=== PATIENT | male | born 1945 | race Caucasian/White ===

== ENCOUNTER 2019-05-08 08:57 | Outpatient (CLI) | payer MEDICARE, SELFPAY ==
[2019-05-08 09:11] LABS: Basophils Absolute Auto 0.09 K/mm3 (0.00-0.10); Eosinophils Absolute Auto 0.71 K/mm3 (0.02-0.50); Eosinophils Percent Auto 7.8 % (1.0-6.0); Hematocrit 39.7 % (37.0-46.0); Hemoglobin 13.3 g/dL (12.4-15.3); Immature Granulocyte Absolute 0.03 K/mm3 (0.00-0.00); Immature Granulocyte Percent A 0.3 % (0.0-0.0); Lymphocytes Absolute Auto 2.39 K/mm3 (1.10-4.50); Lymphocytes Percent Auto 26.1 % (18.0-42.0); Mean Corpuscular HGB Conc 33.5 g/dL (32.0-36.0); Mean Corpuscular Hemoglobin 30.9 pg (27.0-31.0); Mean Corpuscular Volume 92.1 fL (78.0-102.0); Monocytes Absolute Auto 0.82 K/mm3 (0.10-0.90); Neutrophils Absolute Auto 5.1 K/mm3 (1.7-7.2); Neutrophils Percent Auto 55.8 % (50.0-70.0); Platelet Count Result 180 K/mm3 (150-420); Red Blood Count 4.31 M/mm3 (4.70-6.10); Red Cell Distribution Width 12.8 % (11.6-14.4); White Blood Count 9.2 K/mm3 (4.8-10.8)
[2019-05-08 10:21] LABS: Alanine Aminotransferase 13 U/L (16-63); Albumin Level 3.3 g/dL (3.4-5.0); Alkaline Phosphatase 68 U/L (46-116); Anion Gap 13.2 mmol/L (7-16); Aspartate Amino Transferase 15 U/L (15-37); Bilirubin,Total 0.5 mg/dL (0.00-1.00); Blood Urea Nitrogen 18 mg/dL (7-18); Calcium 8.5 mg/dL (8.5-10.1); Carbon Dioxide 29 mmol/L (21-32); Chloride 104 mmol/L (98-108); Cholesterol 163 mg/dL (0-200); Estimated Glomerular Filt Rate > 60; Glucose 243 mg/dL (70-99); HDL Direct 44 mg/dL (40-60); LDL Cholesterol Calculated 96 mg/dL (<130); Osmolality Calculated 303 mOsm/kg (285-295); Potassium 4.2 mmol/L (3.5-5.1); Sodium 142 mmol/L (136-145); Triglycerides 117 mg/dL (0-150)
== END 2019-05-08 08:58 | disposition home or self-care (01) ==
PROVIDERS: PCP Nurse Practitioner Family; Visit Provider Nurse Practitioner Family
DX: E11.9 Type 2 diabetes mellitus without complications (principal)
CPT/HCPCS: 36415; 80053; 80061; 83036; 85025

== ENCOUNTER 2019-09-10 08:24 | Outpatient (CLI) | payer MEDICARE, SELFPAY ==
[2019-09-10 09:00] LABS: Creatinine Urine 83.01 mg/dL (40-278); MALB Creatinine Ratio 1.8 mg/g (0-30); Microalbumin Urine Random 1.5 mg/L
[2019-09-10 09:03] LABS: Hemoglobin A1C 8.5 % (<5.7)
== END 2019-09-10 08:25 | disposition home or self-care (01) ==
LOC: CHSLAB 08:28
PROVIDERS: PCP Nurse Practitioner Family; Visit Provider Nurse Practitioner Family
DX: E11.9 Type 2 diabetes mellitus without complications (principal)
CPT/HCPCS: 36415; 82043; 83036

== ENCOUNTER 2019-09-25 14:06 | Outpatient (CLI) | payer MEDICARE, MEDICAID, SELFPAY ==
--- NOTE | 2019-09-25 14:09 | ECG_ITS ---
Measurements Intervals [place] Rate: 73 P: 41 [place]: 257 QRS: -62 QRSD: 109 T: 31 QT: 394 QTc: 437 Interpretive Statements SINUS RHYTHM WITH SINUS ARRHYTHMIA WITH FIRST DEGREE AV BLOCK LEFT ANTERIOR FASCICULAR BLOCK ABNORMAL ECG Electronically Signed On 09-25-2019 14:27:48 CDT by Julian Sheldon D.O.
--- NOTE | 2019-09-25 14:23 | ECHO_ITS ---
Patient Info Name: Frederick Palmer Age: 73 years : 1945 Gender: Male Ht: 68 in Wt: 212 lbs BSA: 2.18 m2 HR: 75 bpm BP: 124 / 73 mmHg Technical Quality: Good Exam Date: 09/25/2019 2:40 PM Exam Location: [facility] Patient Status: Outpatient Admit Date: 09/25/2019 Staff Ordering Physician: Priscilla Fish NP Dam Tender Assistant: Delmar Olivas RDCS, RT Attending Provider: Priscilla Fish NP Referring Physician: Polina LO; Exam Type: CA echo doppler color flow Study Info Indications R60.9 - Edema, unspecified Complete two-dimensional, color flow and Doppler transthoracic echocardiogram is performed. Summary 1. Left ventricular chamber dimension is normal. 2. Left ventricular systolic function is normal, estimated at 55-60%. 3. There is mildly increased left ventricular wall thickness. 4. Left ventricular septal wall motion is abnormal with septal motion related to bundle branch block. 5. Ventricular septum is sigmoid shaped. 6. The left ventricular diastolic function is normal. 7. E/e' 8 is minimally elevated. 8. Right ventricular systolic function is reduced based on TAPSE 1.2 cm.. 9. There is moderate aortic valve sclerosis. 10. There is trace tricuspid valve regurgitation. 11. There is trace pulmonic regurgitation. Left Ventricle Ventricular septum is sigmoid shaped. E/e' 8 is minimally elevated. Left ventricular chamber dimension is normal. Left ventricular systolic function is normal, estimated at 55-60%. There is mildly increased left ventricular wall thickness. Left ventricular septal wall motion is abnormal with septal motion related to bundle branch block. The left ventricular diastolic function is normal. Right Ventricle Right ventricular systolic function is reduced based on TAPSE 1.2 cm.. Right ventricular chamber dimension is normal. Left Atria Left atrial chamber dimension is normal. Right Atria Right atrial chamber dimension is normal. Aortic Valve The aortic valve is trileaflet. There is moderate aortic valve sclerosis. There is no aortic valve stenosis. There is no aortic valve regurgitation. Pulmonic Valve There is trace pulmonic regurgitation. Mitral Valve There is no mitral valve stenosis. There is no mitral valve regurgitation. Tricuspid Valve RVSP is not calculated due to an inadequate TR jet. There is trace tricuspid valve regurgitation. Pericardium/Pleural There is no pericardial effusion. Inferior Vena Cava Normal inferior vena cava with >50% collapse upon inspiration consistent with normal right atrial pressure, 5 mmHg. Aorta The aortic root size at the sinus of Valsalva is normal. Left Ventricular Outflow Tract Name Value Normal LVOT 2D LVOT Diameter 2.4 cm LVOT Doppler LVOT Peak Velocity 61 cm/s LVOT Peak Gradient 1 mmHg LVOT Mean Gradient 1 mmHg LVOT VTI 13 cm LVOT VTI/AV VTI Ratio 0.8 LVOT Stroke Volume 57 ml Mitral Valve
== END 2019-09-25 14:07 | disposition home or self-care (01) ==
LOC: CHSIMG 14:09
PROVIDERS: PCP Nurse Practitioner Family; Visit Provider Nurse Practitioner Family
DX: R60.0 Localized edema (principal)
CPT/HCPCS: 93005; 93306

== ENCOUNTER 2019-12-15 13:41 | Emergency (ER) | payer MEDICARE, MEDICAID, SELFPAY ==
[2019-12-15 14:00] VITALS: BP 131/75; PULSE 68; RESP 20; TEMP 37.2; O2SAT 98
--- NOTE | 2019-12-15 14:00 | ED.GENADULT ---
HPI - General Adult General Chief complaint: Urogenital-Male Stated complaint: urinary problems and diarrhea Time Seen by Provider: 12/15/19 14:09 History of Present Illness HPI narrative: 74-year-old male patient is brought in by his caregivers who is also his knees with chief complaints of urinary incontinence. The patient apparently has had some diarrhea and since this morning has had some stool incontinence as well. The patient states that he has had low back pain for a long time but none recently. He has not had any MRIs in the past. The patient has urinary incontinence all the time and the last time he was checked approximately a week and a half to 2 weeks ago and was noted not to have any urinary tract infection. The patient denies any trouble walking or any weakness to his lower extremities. Patient is usually sedentary but has no trouble walking around the house and getting up from his bed to the bathroom and out to the kitchen. He has not noticed any numbness or tingling to his lower half of the body. Patient is a diabetic. The patient denies any chest pain, headache, abdominal pain or any nausea or vomiting. He does complain of dry skin and itching all the time. Related Data Home Medications Medication Instructions Recorded Confirmed carvedilol 12.5 mg PO BID 12/15/19 12/15/19 metformin 1,000 mg PO BID 12/15/19 12/15/19 Allergies Allergy/AdvReac Type Severity Reaction Status Date / Time No Known Allergies Allergy Unverified 12/15/19 14:04 Review of Systems Review of Systems: All systems reviewed & are unremarkable except as noted in HPI and below Constitutional: Constitutional: Reports as per HPI, Denies chills, Denies fatigue, Denies fever(s) and Denies weakness Eyes: Eyes: Reports no additional eye complaints Gastrointestinal: Gastrointestinal: Reports as per HPI Genitourinary: Genitourinary: Reports as per HPI, Denies hematuria, Denies oliguria and Denies dysuria Neurologic: Denies confusion, Denies vertigo, Denies dizziness, Denies syncope, Denies numbness and Denies weakness PMF Past Medical History Medical History Heart attack Nicotine dependence, cigarettes, in remission Obesity, Class I, BMI 30-34.9 Type 2 diabetes mellitus Surgical History Surgical History History of cholecystectomy History of heart surgery bypass surgery Family History Family History Mother Diabetes mellitus Social History Social History Years smoked: 10 Smoking status: Never smoker Smokeless tobacco user: chewing tobacco Alcohol intake: never Substance use: never Substance use type: does not use Additional living arrangements comments: niece Patient reports he was having trouble at home. Additional occupation/education comments: construction-prior Gender identity (if verbalized by the patient): Male Exam Const: General: no acute distress and alert Nutritional Appearance: well nourished and obese Orientation/consciousness: patient oriented x3 HENMT: Head: normal to inspection Mouth: Yes Normal oral and palatal mucosa present Eyes: Pupils: Equal, round and reactive pupils present EOM: EOMs intact bilaterally Neck: Neck: normal visual inspection Chest: Chest palpation & inspection: normal inspection of the chest Resp: Effort & Inspection: normal respiratory effort, no retractions and no use of accessory muscles Auscultation: clear to auscultation bilaterally, no crackles, no rales, no rhonchi, no wheezes and lung sounds not diminished Cardio: Rate: regular rate Rhythm: regular rhythm GI: GI Palp: Yes Soft to palpation, No Tenderness to palpation present (GI), No Guarding due to palpation present (GI), No Rigid due to palpation and No Rebound tenderness present Percussion
[2019-12-15 15:08] LABS: Add Urine Microscopic? YES; Appearance Urine Clear (Clear); Bilirubin Urine Negative (Negative); Blood Urine Negative (Negative); Color Urine Yellow (Yellow); Glucose Urine UA 3+ (Negative); Ketones Urine Negative (Negative); Leukocyte Esterase Ur Negative LEU/UL (Negative); Nitrate Urine Negative (Negative); Protein Urine Negative (Negative); Urobilinogen Urine 0.2 mg/dL (0.2-1.0); pH Urine 5.5 (5.0-8.0)
[2019-12-15 15:14] LABS: Bacteria Urine None seen /hpf
[2019-12-15 15:15] LABS: Squamous Epithelial Cell Urine Few /hpf (Few)
[2019-12-15 15:35] VITALS: BP 130/78; PULSE 75; RESP 20; O2SAT 97
== END 2019-12-15 15:38 | disposition home or self-care (01) ==
PROVIDERS: Emergency Provider Emergency Medicine; PCP Nurse Practitioner Family
DX: N39.498 Other specified urinary incontinence (principal)
CPT/HCPCS: 81001; 99282; 99283

== ENCOUNTER 2020-01-13 13:47 | Observation (INO) | payer MEDICARE, MEDICAID, SELFPAY ==
[2020-01-13] VITALS (8 sets, daily range): BP systolic 105–169; BP diastolic 59–78; PULSE 62–86; RESP 12–18; TEMP 36.3–37.3; O2SAT 94–100; BMI 34.5
--- NOTE | ~2020-01-13 | CT_ITS ---
EXAMINATION: CT brain wo con DATE: 01/13/2020 14:43 INDICATION: Altered mental status. Seizure. TECHNIQUE: Computed tomography (CT) of the head was performed without intravenous contrast. The mA wa s adjusted according to patient size. Iterative reconstruction technique was employed. The dose-lengt h product was 756.67 mGy-cm. COMPARISON: None FINDINGS: There is diffuse brain volume loss. There are scattered areas of low attenuation in the cer ebral white matter, which is within normal limits for the patient's age. There is no intracranial hem orrhage, acute infarction, or abnormal intracranial mass lesion. The ventricles are normal in size. T here are likely changes of ocular lens replacement surgeries. There is mild mucosal thickening in the paranasal sinuses. The mastoid air cells are normal. IMPRESSION: 1. Normal aging brain. Reviewed, dictated and finalized at location A. IMPRESSION: 1. Normal aging brain.
--- NOTE | ~2020-01-13 | XR_ITS ---
EXAMINATION: XR chest 2V DATE: 01/13/2020 16:36 INDICATION: Cough and altered mental status. TECHNIQUE: frontal and lateral views of the chest were obtained. COMPARISON: None FINDINGS: Calcified nodule at the left apex consistent with old granulomatous disease. No other airspace opacit ies, pulmonary edema, pleural effusion or pneumothorax. The cardiomediastinal silhouette is normal. M edian sternotomy wires, ostial markers and mediastinal surgical clips consistent with prior coronary artery bypass grafting. There are bridging osteophytes at multiple levels in the spine, consistent wi th diffuse idiopathic skeletal hyperostosis (DISH). IMPRESSION: 1. No acute cardiopulmonary disease. Reviewed, dictated and finalized at location B.
--- NOTE | 2020-01-13 13:50 | ED.AMS ---
HPI - Altered Mental Status General Chief Complaint: Altered Mental Status Stated Complaint: ambulance Time Seen by Provider: 01/13/20 13:50 Source: patient Mode of arrival: EMS Limitations: no limitations History of Present Illness HPI narrative: 74-year-old man with history of type 2 diabetes brought in today by EMS after his daughter found him having seizure-like activity in his recliner. He stated his recliner overnight because of back pain and did not eat his breakfast this morning. He had his usual insulin dose this morning. EMS found him obtunded and incontinent of urine. Glucose in the EMS unit was in the 40s. Here his glucose was 45. has no history of seizures. His daughter states that she has had several falls in the last week or so but none resulting in evident injury. He has had no chest pain, shortness breath, nausea, vomiting, diarrhea, cough or cold symptoms, or pain complaints other than his back. She states the red area over his right eye is a birthmark. complaint: altered mental status Onset (ago): minute(s) (20) Severity: severe Consistency of symptoms: constant Context: diabetes Associated symptoms: chest pain, nausea/vomiting and shortness of breath Related Data Home Medications Medication Instructions Recorded Confirmed carvedilol 12.5 mg PO BID 12/15/19 01/13/20 metformin 1,000 mg PO BID 12/15/19 01/13/20 Allergies Allergy/AdvReac Type Severity Reaction Status Date / Time No Known Allergies Allergy Unverified 12/15/19 14:04 Review of Systems Review of Systems: ROS unobtainable: Yes unobtainable due to mental status Constitutional: Constitutional: Reports frequent falls (per daughter) [facility] Past Medical History Medical History (Updated 01/13/20 @ 18:[address] MD) Heart attack Nicotine dependence, cigarettes, in remission Obesity, Class I, BMI 30-34.9 Type 2 diabetes mellitus Surgical History Surgical History History of cholecystectomy History of heart surgery bypass surgery Family History Family History Mother Diabetes mellitus Social History Social History Years smoked: 10 Smoking status: Former smoker Tobacco type: cigarettes Smokeless tobacco user: chewing tobacco Second hand tobacco smoke exposure: Yes Alcohol intake: former Drinks per week: 3 Substance use: former Substance use type: marijuana Additional living arrangements comments: niece Patient reports he was having trouble at home. Additional occupation/education comments: construction-prior Gender identity (if verbalized by the patient): Male Sexual Orientation (if Verbalized by the Patient): Straight or Heterosexual Spiritual care concerns: No Exam Const: General: patient obtunded ( Spontaneous breathing and spontaneous movement of his upper extremities) Nutritional Appearance: overweight Limitations: altered mental status HENMT: Head: normal to inspection, atraumatic and periorbital ecchymosis ( erythema above left eye) Ears: external ears normal and TM's normal bilaterally General nose exam: Normal external nose present Face and sinus: normal facial exam Mouth: Yes Normal oral and palatal mucosa present and Yes moist mucous membranes Throat: posterior oropharynx normal Eyes: Pupils: Equal, round and reactive pupils present EOM: EOMs intact bilaterally Neck: Neck: normal visual inspection, trachea midline and other ( no tenderness) Chest: Chest palpation & inspection: normal inspection of the chest Resp: Effort & Inspection: normal respiratory effort and symmetric chest movement Auscultation: clear to auscultation bilaterally, no rales, no rhonchi and no wheezes Cardio: Rate: regular rate Rhythm: regular rhythm Heart sounds: no murmurs Peripheral pulses: Peripheral pulse
--- NOTE | 2020-01-13 13:54 | ECG_ITS ---
Measurements Intervals [place] Rate: 63 P: 28 CT: 334 QRS: -49 QRSD: 109 T: 1 QT: 421 QTc: 431 Interpretive Statements SINUS RHYTHM WITH MARKED FIRST DEGREE AV BLOCK LEFT AXIS DEVIATION BORDERLINE R WAVE PROGRESSION, ANTERIOR LEADS BORDERLINE T WAVE ABNORMALITY- INFERIOR LEADS BASELINE ARTIFACT- II, III, AVL, AVF ABNORMAL ECG Electronically Signed On 01-13-2020 14:48:09 CDT by Julian Sheldon D.O.
[2020-01-13] MEDS: DEXTROSE 10% 250 ML 200 ML IV CONT (14:00)
--- NOTE | 2020-01-13 14:11 | PC.NURSE ---
1347 PT ARRIVES BY EMS UNRESPONSIVE BUT BREATHING WITH STABLE VITAL SIGNS. BEDSIDE FINGER STICK 45.
--- NOTE | 2020-01-13 14:13 | PC.NURSE ---
ACCU CHECK 74. PT IS NOW ALERT AND ORIENTED AND ANSWERING ALL QUESTIONS APPROPRIATELY.
[2020-01-13 14:14] LABS: Glucose Point of Care 74 (65-105)
[2020-01-13 14:24] LABS: Base Excess ABG -4.4 mmol/L (0-2); HCO3 ABG 21.7 mmol/L (23-29); Oxygen Content ABG 20.1 %vol (16.0-22.0); Oxygen Saturation ABG 97.5 % (95-97); Oxyhemoglobin 96.9 % (94-100); PCO2 ABG 43.5 mmHg (35-45); PO2 ABG 100.9 mmHg (75-85); Total Hemoglobin 14.7 g/dL; pH ABG 7.32 (7.35-7.45)
[2020-01-13 14:26] LABS: Modified Allen's Test Pass; Site Drawn LEFT BRACHIAL
[2020-01-13 14:27] LABS: Device NASAL CANNULA
[2020-01-13 14:29] LABS: Add Urine Microscopic? YES; Appearance Urine Clear (Clear); Basophils Absolute Auto 0.07 K/mm3 (0.00-0.10); Basophils Percent Auto 0.6 % (0.0-1.0); Bilirubin Urine Negative (Negative); Blood Urine Negative (Negative); Color Urine Yellow (Yellow); Eosinophils Absolute Auto 0.58 K/mm3 (0.02-0.50); Eosinophils Percent Auto 4.9 % (1.0-6.0); Glucose Urine UA 3+ (Negative); Hematocrit 43.3 % (37.0-46.0); Hemoglobin 14.2 g/dL (12.4-15.3); Immature Granulocyte Absolute 0.05 K/mm3 (0.00-0.00); Immature Granulocyte Percent A 0.4 % (0.0-0.0); Ketones Urine Negative (Negative); Leukocyte Esterase Ur Negative LEU/UL (Negative); Lymphocytes Absolute Auto 1.62 K/mm3 (1.10-4.50); Lymphocytes Percent Auto 13.8 % (18.0-42.0); Mean Corpuscular HGB Conc 32.8 g/dL (32.0-36.0); Mean Corpuscular Hemoglobin 30.7 pg (27.0-31.0); Mean Corpuscular Volume 93.7 fL (78.0-102.0); Mean Platelet Volume 10.6 fl (8.7-11.0); Monocytes Absolute Auto 1.12 K/mm3 (0.10-0.90); Monocytes Percent Auto 9.5 % (2.0-11.0); Neutrophils Absolute Auto 8.3 K/mm3 (1.7-7.2); Neutrophils Percent Auto 70.8 % (50.0-70.0); Nitrate Urine Negative (Negative); Platelet Count Result 195 K/mm3 (150-420); Protein Urine Negative (Negative); Red Blood Count 4.62 M/mm3 (4.70-6.10); Red Cell Distribution Width 13.3 % (11.6-14.4); Specific Grav Ur 1.025 (1.010-1.020); Urobilinogen Urine 0.2 mg/dL (0.2-1.0); White Blood Count 11.8 K/mm3 (4.8-10.8); pH Urine 5.5 (5.0-8.0)
[2020-01-13 14:37] LABS: Bacteria Urine None seen /hpf; RBC Urine None seen /hpf (0-2); Squamous Epithelial Cell Urine Rare /hpf (Few); WBC Urine None seen /hpf (0-3)
[2020-01-13 14:43] LABS: Amphetamine Screen Urine Negative (Negative); Barbiturate Screen Urine Negative (Negative); Benzodiazepines Screen Urine Negative (Negative); Cannabinoid Screen Urine Negative (Negative); Cocaine Screen Urine Negative (Negative); INR 1.1; Methadone Screen Urine Negative (Negative); Opiate Screen Urine Negative (Negative); Partial Thromboplastin Time 27.1 SEC (22.3-31.6); Phencyclidine Screen Urine Negative (Negative); Prothrombin Time 11.6 Seconds (9.64-11.0)
--- NOTE | 2020-01-13 14:50 | PC.NURSE ---
ACCU CHECK 94
[2020-01-13 14:53] LABS: Lactic Acid Reflex 1.3 mmol/L (0.4-2.0)
[2020-01-13 14:55] LABS: Alanine Aminotransferase 15 U/L (16-63); Albumin Level 3.3 g/dL (3.4-5.0); Alkaline Phosphatase 79 U/L (46-116); Ammonia 11 umol/L (11-32); Anion Gap 9 mmol/L (8-16); Aspartate Amino Transferase 18 U/L (15-37); Bilirubin,Total 0.5 mg/dL (0.00-1.00); Blood Urea Nitrogen 17 mg/dL (7-18); Calcium 8.8 mg/dL (8.5-10.1); Carbon Dioxide 26 mmol/L (21-32); Chloride 103 mmol/L (98-108); Creatine Kinase 165 U/L (39-308); Estimated Glomerular Filt Rate 52; Glucose 78 mg/dL (70-99); Osmolality Calculated 286 mOsm/kg (285-295); Potassium 3.9 mmol/L (3.5-5.1); Salicylate 0.6 mg/dL (2.8-20.0); Sodium 138 mmol/L (136-145); Thyroid Stimulating Hormone 3.45 uIU/mL (0.36-3.74); Total Protein 7.6 g/dL (6.4-8.2)
[2020-01-13 14:56] LABS: Acetaminophen 0 ug/mL (10-30); Ethanol < 3 mg/dL (0-6); Troponin I < 0.02 ng/mL (0.00-0.056)
[2020-01-13] MEDS: DEXTROSE 10% 250 ML 50 ML IV CONT (15:15)
--- NOTE | 2020-01-13 16:36 | PC.NURSE ---
RN REQUESTED OBS ROOM FROM KIN, STRUCTURAL METAL WORKER. ROOM 204 PROVIDED. REGISTRATION NOTIFIED.
[2020-01-13 17:31] LABS: Glucose Point of Care 284 (65-105)
--- NOTE | 2020-01-13 17:45 | PC.NURSE ---
D10 Stopped per Dr. Way
--- NOTE | 2020-01-13 18:09 | PC.NURSE ---
Patient confused, unable to answer questions. Niece to bring in medicaion. Unkown if patient had flu shot. PCP Giovanni Fish. Alarm placed under patient, on, working. Bed alarm will not stay on .
[2020-01-13] MEDS: metFORMIN HCL 500 MG TABLET 1000 MG PO (18:34)
[2020-01-13] MEDS: LOVASTATIN 20 MG TABLET PO (18:34)
--- NOTE | 2020-01-13 19:30 | PC.NURSE ---
Oriented to location, situation, date and time. Explained plan of care and need for Accuchecks, neurochecks and frequent vital signs q 4 hours. Denies complaints or needs. After assessment; patient unable to remember orientation to room and information given as noted above.
[2020-01-13 19:56] LABS: Glucose Point of Care 167 (65-105)
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
[2020-01-13 20:23] LABS: Troponin I < 0.02 ng/mL (0.00-0.056)
--- NOTE | 2020-01-13 20:47 | PC.NURSE ---
industrial tech instructor here and performing 12 Lead. Patient appropriate.
--- NOTE | 2020-01-13 21:00 | ECG_ITS ---
Measurements Intervals [place] Rate: 81 P: 11 [place]: 256 QRS: -60 QRSD: 93 T: 44 QT: 388 QTc: 452 Interpretive Statements SINUS RHYTHM WITH FIRST DEGREE AV BLOCK LEFT AXIS DEVIATION CANNOT RULE OUT SEPTAL INFARCT, AGE INDETERMINATE BORDERLINE ST-T WAVE ABNORMALITY- HIGH LATERAL LEADS BASELINE ARTIFACT- II, III, AVR, AVL, AVF, V1-V3 ABNORMAL ECG Electronically Signed On 01-14-2020 6:56:29 CDT by Julian Sheldon D.O.
[2020-01-13] MEDS: carvediloL 6.25 MG TABLET PO (21:55)
[2020-01-13 22:27] LABS: Glucose Point of Care 151 (65-105)
--- NOTE | 2020-01-13 23:02 | PC.NURSE ---
Patient requires 1:1 observation; removing monitor leads and continually holding call light down.
--- NOTE | 2020-01-13 23:30 | PC.NURSE ---
Pt resting in bed and slightly restless. Pt is oriented to self and time only. case monitor shows sinus rhythm with first degree heart block. Pt doesnt voice any c/o headache or dizziness and nerochecks are within normal limits.
[2020-01-14] VITALS: BP 115/64; PULSE 86; RESP 20; TEMP 37.2; O2SAT 95
--- NOTE | 2020-01-14 00:05 | PC.NURSE ---
Dr. Way notified of pt's accucheck of 169. No new orders at this time.
[2020-01-14 01:18] LABS: Glucose Point of Care 169 (65-105)
[2020-01-14 01:47] LABS: Troponin I < 0.02 ng/mL (0.00-0.056)
[2020-01-14 02:03] LABS: Glucose Point of Care 182 (65-105)
--- NOTE | 2020-01-14 02:05 | PC.NURSE ---
Dr. Way notified of pt's blood sugar of 182; No new orders at this time.
--- NOTE | 2020-01-14 02:27 | PC.NURSE ---
Pt dozing quietly and no signs of discomfort noted.
--- NOTE | 2020-01-14 03:30 | PC.NURSE ---
Pt voided 375 mls of clear, yellow urine in urinal.
[2020-01-14 03:59] LABS: Glucose Point of Care 186 (65-105)
[2020-01-14 04:00] VITALS: BP 141/70; PULSE 80; PULSE 87; RESP 20; TEMP 36.7; O2SAT 95
--- NOTE | 2020-01-14 04:07 | PC.NURSE ---
Notified Dr. Way about pt's blood sugar of 186; No new orders at this time.
[2020-01-14 05:48] LABS: Basophils Absolute Auto 0.09 K/mm3 (0.00-0.10); Eosinophils Absolute Auto 0.53 K/mm3 (0.02-0.50); Eosinophils Percent Auto 5.6 % (1.0-6.0); Hematocrit 40.5 % (37.0-46.0); Hemoglobin 13.1 g/dL (12.4-15.3); Immature Granulocyte Absolute 0.03 K/mm3 (0.00-0.00); Immature Granulocyte Percent A 0.3 % (0.0-0.0); Lymphocytes Absolute Auto 2.17 K/mm3 (1.10-4.50); Lymphocytes Percent Auto 23.1 % (18.0-42.0); Mean Corpuscular HGB Conc 32.3 g/dL (32.0-36.0); Mean Corpuscular Hemoglobin 30.3 pg (27.0-31.0); Mean Corpuscular Volume 93.8 fL (78.0-102.0); Mean Platelet Volume 11.1 fl (8.7-11.0); Monocytes Absolute Auto 1.08 K/mm3 (0.10-0.90); Monocytes Percent Auto 11.5 % (2.0-11.0); Neutrophils Absolute Auto 5.5 K/mm3 (1.7-7.2); Neutrophils Percent Auto 58.5 % (50.0-70.0); Platelet Count Result 178 K/mm3 (150-420); Red Blood Count 4.32 M/mm3 (4.70-6.10); Red Cell Distribution Width 13.4 % (11.6-14.4); White Blood Count 9.4 K/mm3 (4.8-10.8)
[2020-01-14 06:00] LABS: Glucose Point of Care 191 (65-105)
[2020-01-14 06:09] LABS: Alanine Aminotransferase 14 U/L (16-63); Albumin Level 3.2 g/dL (3.4-5.0); Alkaline Phosphatase 80 U/L (46-116); Anion Gap 10 mmol/L (8-16); Aspartate Amino Transferase 20 U/L (15-37); Bilirubin,Total 0.9 mg/dL (0.00-1.00); Blood Urea Nitrogen 20 mg/dL (7-18); Calcium 8.7 mg/dL (8.5-10.1); Carbon Dioxide 25 mmol/L (21-32); Chloride 102 mmol/L (98-108); Estimated CRCL calculation 42 ml/min; Estimated Glomerular Filt Rate 43; Glucose 174 mg/dL (70-99); Osmolality Calculated 290 mOsm/kg (285-295); Potassium 4.2 mmol/L (3.5-5.1); Sodium 137 mmol/L (136-145); Total Protein 6.6 g/dL (6.4-8.2)
--- NOTE | 2020-01-14 06:11 | PC.NURSE ---
Dr. Way notified of pt's blood sugar of 191; No new orders at this time.
[2020-01-14 06:16] LABS: Troponin I < 0.02 ng/mL (0.00-0.056)
--- NOTE | 2020-01-14 07:00 | ECG_ITS ---
Measurements Intervals [place] Rate: 86 P: 78 [place]: 295 QRS: -57 QRSD: 94 T: 70 QT: 376 QTc: 451 Interpretive Statements SINUS RHYTHM WITH FIRST DEGREE AV BLOCK LEFT ANTERIOR FASCICULAR BLOCK BORDERLINE ST-T WAVE ABNORMALITY- HIGH LATERAL LEADS BASELINE ARTIFACT- I, II, III, AVR, AVL, AVF ABNORMAL ECG Electronically Signed On 01-14-2020 6:57:04 CDT by Julian Sheldon D.O.
--- NOTE | 2020-01-14 07:29 | PM.SD ---
Same Day Admit/Disch: HPI History of Present Illness Chief complaint: hypoglycemia sz activity Narrative: Frederick Palmer is a 74 year old male brought to the hospital via EMS after niece found having seizure-like activity in a chair. Glucose at that time was 40 and patient had altered mental status. I spoke with the niece this morning and she states that patient's mental status has been deteriorating for while and this morning he is at what she calls his normal baseline. Patient was placed into observation for hypoglycemia altered mental status and do series of troponin which turned out negative. [facility] Past Medical History Medical History (Updated 01/14/20 @ 12:04 by YESIKA Carvajal) Heart attack Nicotine dependence, cigarettes, in remission Obesity, Class I, BMI 30-34.9 Type 2 diabetes mellitus Surgical History Surgical History History of cholecystectomy History of heart surgery bypass surgery Family History Family History Mother Diabetes mellitus Social History Social History Years smoked: 10 Smoking status: Former smoker Tobacco type: cigarettes Smokeless tobacco user: chewing tobacco Second hand tobacco smoke exposure: Yes Alcohol intake: former Drinks per week: 3 Substance use: former Substance use type: marijuana Additional living arrangements comments: niece Patient reports he was having trouble at home. Additional occupation/education comments: construction-prior Gender identity (if verbalized by the patient): Male Spiritual care concerns: No Same Day Admit/Disch: Med Pre-admit Medications Home Medications Medication Instructions Recorded Confirmed Type semaglutide 0.5 mg SUB-Q WEEKLY #1.5 ml 09/01/19 01/13/20 Rx empagliflozin 25 mg tablet 25 mg PO DAILY #90 tablet 09/02/19 01/13/20 Rx aspirin 81 mg tablet,delayed 81 mg PO DAILY #90 tablet 09/04/19 01/13/20 Rx release loratadine 10 mg tablet 10 mg PO DAILY #30 tablet 11/21/19 01/13/20 Rx insulin lispro 100 unit/mL 22 unit SUB-Q TID #15 ml 12/12/19 01/13/20 Rx subcutaneous pen carvedilol 12.5 mg PO BID 12/15/19 01/13/20 History metformin 1,000 mg PO BID 12/15/19 01/13/20 History lovastatin 20 mg tablet See Rx Instructions .ROUTE 12/17/19 01/13/20 Rx .COMPLEX #90 tablet blood sugar diagnostic See Rx Instructions .ROUTE 12/22/19 01/13/20 Rx .COMPLEX #100 strip pen needle, diabetic 31 gauge x #270 ea 01/12/20 01/13/20 Rx 08/01 Exam Narrative: Exam Narrative: knee states that patient has had multiple falls recently. Patient was alert and oriented to self stated the year was 2011, , and was unable to see who the president is at this time. Resp: Effort & Inspection: normal respiratory effort Auscultation: clear to auscultation bilaterally Cardio: Jugular venous distension: no JVD Palpation: normal PMI Rate: regular rate Heart sounds: S1 normal heart sound present and S2 normal heart sound present GI: GI Palp: Yes Soft to palpation Auscultation: normal bowel sounds Neuro: General: oriented to person Cranial nerves: Yes CN's II-XII intact bilaterally (Grossly intact) Extrem: General: no pedal edema DS: Data Data Completed and Pending Labs on day of discharge: Labs from last 24 hours 01/14/20 01/14/20 01/14/20 05:58 05:16 05:16 WBC 9.4 RBC 4.32 L Hgb 13.1 Hct 40.5 MCV 93.8 MCH 30.3 MCHC 32.3 RDW 13.4 Plt Count 178 MPV 11.1 H Immature Gran % (Auto) 0.3 H Neut % (Auto) 58.5 Lymph % (Auto) 23.1 [place] % (Auto) 11.5 H Eos % (Auto) 5.6 Baso % (Auto) 1.0 Lymph # (Auto) 2.17 [place] # (Auto) 1.08 H Eos # (Auto) 0.53 H Baso # (Auto) 0.09 Abs Immat Gran (auto) 0.03 H Absolute Neuts (auto) 5.5 Absolute Nucleated RBC 0.00 Nucleated
[2020-01-14 08:00] VITALS: BP 112/64; PULSE 90; PULSE 92; RESP 20; TEMP 37.1; O2SAT 96
[2020-01-14 08:12] LABS: Glucose Point of Care 156 (65-105)
[2020-01-14] MEDS: LORATADINE 10 MG TABLET PO (08:22)
[2020-01-14] MEDS: metFORMIN HCL 500 MG TABLET 1000 MG PO (08:22)
[2020-01-14] MEDS: ASPIRIN 81 MG ENTERIC TABLET PO (08:22)
[2020-01-14] MEDS: ENOXAPARIN 40 MG/0.4 ML SYRINGE SUB-Q (08:22)
--- NOTE | 2020-01-14 08:56 | PHAR ---
01/14/20 - verified pt.'s home med jardiance. tls
[2020-01-14 10:24] LABS: Glucose Point of Care 228 (65-105)
--- NOTE | 2020-01-14 10:29 | PC.NURSE ---
niece at bedside. gives him his ozempic and states do not give jardiance today. up in chair. tele sr
[2020-01-14 12:00] VITALS: BP 128/74; PULSE 88; RESP 20; TEMP 36.6; O2SAT 95
[2020-01-14 12:07] LABS: Glucose Point of Care 206 (65-105)
[2020-01-15 15:34] LABS: Glucose Point of Care 75 (65-105)
[2020-01-15 15:35] LABS: Glucose Point of Care 94 (65-105)
--- NOTE | 2020-01-16 14:32 | PC.NURSE ---
Unable to contact for discharge call back.
--- NOTE | 2020-01-16 14:51 | PC.NURSE ---
Pt's caregiver called selling underwriter back. States they understood the discharge instructions and Everything was good . Caregiver questioning how to proceed with admitting patient to the [facility]pc. Advised to notify the PCP.
[2020-01-19 12:59] LABS: Hemoglobin A1C 6.6 % (<5.7)
[2020-01-21 13:55] LABS: Glucose Point of Care 45 (65-105)
== END 2020-01-14 13:40 | disposition home or self-care (01) ==
LOC: CHSED 13:52 → CHS2ND 16:38
PROVIDERS: Nurse Practitioner Family; Admitting Provider Emergency Medicine; Emergency Provider Emergency Medicine; PCP Nurse Practitioner Family; Visit Provider Emergency Medicine
DX: E11.649 Type 2 diabetes mellitus with hypoglycemia without coma (principal); N17.9 Acute kidney failure, unspecified; E66.9 Obesity, unspecified; F17.211 Nicotine dependence, cigarettes, in remission
CPT/HCPCS: 36415; 36600; 70450; 71046; 80053; 80307; 81001; 82140; 82550; 82805; 82948; 83036; 83605; 84443; 84484; 85025; 85610; 85730; 87040; 93005; 96365; 96366; 96372; 99285; A9270; G0378; J1650

== ENCOUNTER 2020-01-21 17:49 | Inpatient (IN) | payer MEDICARE, MEDICAID, SELFPAY ==
--- NOTE | ~2020-01-21 | CT_ITS ---
EXAMINATION: CT chest abdomen pelvis w con DATE: 01/21/2020 20:16 INDICATION: Lactic acidosis. Anorexia. Hypoglycemia. TECHNIQUE: Computed tomography (CT) of the chest, abdomen, and pelvis was performed with 175 mL Omnip aque 350 intravenous contrast. Automated exposure control and iterative reconstruction technique were employed. The dose-length product was 2067.50 mGy-cm. COMPARISON: None FINDINGS: CHEST CT: The lungs demonstrate mild atelectasis. There is mild scarring in paraspinal right lower lobe. Calcif ied right lung nodules and calcified right hilar and mediastinal lymph nodes are consistent with old granulomatous disease. No pleural effusion. The heart size is normal. There are coronary artery calci fications. No pericardial effusion. There are changes of coronary artery bypass grafting. There are o ld healed left rib fractures. There are bridging endplate osteophytes at multiple levels in the spine , consistent with diffuse idiopathic skeletal hyperostosis (DISH). ABDOMEN/PELVIS CT: The liver is normal. There are changes of cholecystectomy. The spleen, pancreas, and adrenal glands a re normal. There is cortical thinning of the kidneys. There is prominent fat in the inguinal canals t hat may be hernias. There are no dilated loops of bowel. The appendix is normal. There is calcified a therosclerosis of the aorta and many of the other arteries. There is severe lumbar spondylosis. IMPRESSION: 1. Prominent fat in the inguinal canals bilaterally that may be small hernias. Reviewed, dictated and finalized at location A. PER GUN OPERATOR
--- NOTE | ~2020-01-21 | XR_ITS ---
EXAMINATION: XR chest 2V DATE: 01/21/2020 18:35 INDICATION: Transient alteration of awareness. TECHNIQUE: Frontal and lateral views of the chest were obtained. COMPARISON: Chest 2 views 01/13/2020 FINDINGS: Calcified pulmonary nodules and calcified right hilar lymph nodes are consistent with old g ranulomatous disease. No pleural effusion or pneumothorax. The heart size is normal. Median sternotom y wires and mediastinal surgical clips are seen, likely from prior coronary artery bypass grafting. T here are old healed left rib fractures. IMPRESSION: 1. No acute cardiopulmonary disease. Reviewed, dictated and finalized at location A. WINDER
[2020-01-21 17:49] VITALS: BP 148/78; PULSE 73; RESP 14; TEMP 36.8; O2SAT 99
[2020-01-21] MEDS: DEXTROSE 10% 250 ML 100 ML IV CONT (18:02)
[2020-01-21 18:04] LABS: Glucose Point of Care 46 (65-105)
--- NOTE | 2020-01-21 18:08 | ECG_ITS ---
Measurements Intervals [place] Rate: 74 P: 14 [place]: 289 QRS: -58 QRSD: 93 T: 4 QT: 391 QTc: 436 Interpretive Statements SINUS RHYTHM WITH FIRST DEGREE AV BLOCK LEFT AXIS DEVIATION POOR R WAVE PROGRESSION, ANTERIOR LEADS BORDERLINE ST-T WAVE ABNORMALITY- HIGH LATERAL LEADS BASELINE ARTIFACT- I, II, III, AVR, AVL, AVF, V1-V6 ABNORMAL ECG Electronically Signed On 01-22-2020 7:12:36 FINANCE OFFICER by Julian Sheldon D.O.
--- NOTE | 2020-01-21 18:34 | ED.RECABL ---
HPI - Recheck/Abnormal Lab/Rx General Chief Complaint: Recheck/Abnormal Lab/Rx Stated Complaint: Low blood surgar Time Seen by Provider: 01/21/20 18:00 Source: patient and family Mode of arrival: wheelchair Limitations: no limitations History of Present Illness HPI narrative: 74-year-old man with a history of type 2 diabetes and coronary artery disease brought to the emergency department by his niece who lives with him for low blood sugar. He was seen at his doctor's office today for follow-up after he was admitted here on 01/12 for altered mental status (hyperglycemia) and a seizure. His blood sugar was persisting in the 30s and 40s at the office in spite of the glucose tablets and other oral remedies they gave him there. His niece states that he is less active than usual and well he can get up and use a walker to get to the bathroom, he frequently has an accident before arriving there. He has not been eating well and she states his glucose has been very low. She has been giving him candy in order to keep his blood sugar up. He has not been taking his Ozempic and is taking his insulin only intermittently. He has had no seizures. the patient complains of weakness and admits his appetite has not been good. Initial visit (ago): day(s) Description of abnormal result: Hypoglycemia Symptoms since prior visit: no new symptoms Context: planned re-check Related Data Home Medications Medication Instructions Recorded Confirmed carvedilol 12.5 mg PO BID 12/15/19 01/21/20 Allergies Allergy/AdvReac Type Severity Reaction Status Date / Time No Known Allergies Allergy Unverified 01/21/20 16:52 Review of Systems Constitutional: Constitutional: Denies chills, Denies fever(s) and Reports weakness Eyes: Eyes: Denies change in vision and Denies photophobia ENT: Denies dysphagia, Denies nasal congestion and Denies sore throat Cardiovascular: Cardiovascular: Denies chest pain and Denies radiating jaw, neck or arm pain Respiratory: Respiratory: Denies cough, Denies dyspnea and Denies wheezing Gastrointestinal: Gastrointestinal: Denies abdominal pain, Denies diarrhea, Denies nausea and Denies vomiting Genitourinary: Genitourinary: Denies hematuria, Denies dysuria and Reports urinary incontinence Integumentary/Breasts: Skin/Breast: Denies pruritus, Denies erythema and Denies rash Neurologic: Denies vertigo, Denies dizziness and Denies syncope Psychiatric: Psychiatric: Denies anxiety and Denies depression Endocrine: Endocrine: Denies polydipsia and Denies polyuria Hematologic/Lymphatic: Hematologic/Lymphatic: Denies easy bleeding and Denies easy bruising Allergic/Immunologic: Allergic/Immunologic: Denies lip swelling and Denies tongue swelling PMFSH Past Medical History Medical History (Updated 01/21/20 @ 20:[address] MD) Heart attack Nicotine dependence, cigarettes, in remission Obesity, Class I, BMI 30-34.9 Type 2 diabetes mellitus Surgical History Surgical History History of cholecystectomy History of heart surgery bypass surgery Family History Family History Mother Diabetes mellitus Social History Social History Years smoked: 10 Tobacco type: cigarettes Smokeless tobacco user: chewing tobacco Second hand tobacco smoke exposure: Yes Alcohol intake: former Drinks per week: 3 Substance use: former Substance use type: marijuana Additional living arrangements comments: niece Patient reports he was having trouble at home. Additional occupation/education comments: construction-prior Gender identity (if verbalized by the patient): Male Spiritual care concerns: No Exam Const: General: no acute distress, alert and confusion Other: not oriented to day and date but recognizes his niece and can re
[2020-01-21 18:43] LABS: Base Excess ABG -0.8 mmol/L (0-2); HCO3 ABG 23.7 mmol/L (23-29); Oxygen Content ABG 19.4 %vol (16.0-22.0); Oxygen Saturation ABG 96.9 % (95-97); Oxyhemoglobin 96.3 % (94-100); PCO2 ABG 38.7 mmHg (35-45); PO2 ABG 86.8 mmHg (75-85); Total Hemoglobin 14.3 g/dL
[2020-01-21 18:47] LABS: Basophils Absolute Auto 0.11 K/mm3 (0.00-0.10); Basophils Percent Auto 1.1 % (0.0-1.0); Device ROOM AIR; Eosinophils Absolute Auto 0.74 K/mm3 (0.02-0.50); Eosinophils Percent Auto 7.2 % (1.0-6.0); Hematocrit 44.1 % (37.0-46.0); Hemoglobin 14.3 g/dL (12.4-15.3); Immature Granulocyte Absolute 0.03 K/mm3 (0.00-0.00); Immature Granulocyte Percent A 0.3 % (0.0-0.0); Lymphocytes Absolute Auto 2.43 K/mm3 (1.10-4.50); Lymphocytes Percent Auto 23.7 % (18.0-42.0); Mean Corpuscular HGB Conc 32.4 g/dL (32.0-36.0); Mean Corpuscular Hemoglobin 30.4 pg (27.0-31.0); Mean Corpuscular Volume 93.8 fL (78.0-102.0); Mean Platelet Volume 10.5 fl (8.7-11.0); Modified Allen's Test Pass; Monocytes Absolute Auto 0.99 K/mm3 (0.10-0.90); Monocytes Percent Auto 9.6 % (2.0-11.0); Neutrophils Percent Auto 58.1 % (50.0-70.0); Platelet Count Result 252 K/mm3 (150-420); Red Cell Distribution Width 13.8 % (11.6-14.4); Site Drawn LEFT RADIAL; White Blood Count 10.3 K/mm3 (4.8-10.8)
[2020-01-21 19:08] LABS: Appearance Urine Clear (Clear); Bilirubin Urine Negative (Negative); Color Urine Yellow (Yellow); Glucose Urine UA 3+ (Negative); Ketones Urine Negative (Negative); Leukocyte Esterase Ur Negative LEU/UL (Negative); Nitrate Urine Negative (Negative); Protein Urine Negative (Negative); Urobilinogen Urine 0.2 mg/dL (0.2-1.0); pH Urine 5.5 (5.0-8.0)
[2020-01-21 19:08] LABS: Lactic Acid Reflex 2.4 mmol/L (0.4-2.0)
[2020-01-21 19:10] LABS: Alanine Aminotransferase 22 U/L (16-63); Albumin Level 3.5 g/dL (3.4-5.0); Alkaline Phosphatase 79 U/L (46-116); Anion Gap 11 mmol/L (8-16); Aspartate Amino Transferase 30 U/L (15-37); Bilirubin,Total 0.4 mg/dL (0.00-1.00); Blood Urea Nitrogen 18 mg/dL (7-18); Calcium 8.8 mg/dL (8.5-10.1); Carbon Dioxide 27 mmol/L (21-32); Chloride 103 mmol/L (98-108); Creatine Kinase 283 U/L (39-308); Estimated Glomerular Filt Rate 43; Osmolality Calculated 290 mOsm/kg (285-295); Potassium 3.5 mmol/L (3.5-5.1); Sodium 141 mmol/L (136-145); Thyroid Stimulating Hormone 4.88 uIU/mL (0.36-3.74)
[2020-01-21 19:11] LABS: Glucose 43 mg/dL (70-99)
[2020-01-21 19:12] LABS: Add Urine Microscopic? YES; Blood Urine Trace (Negative)
[2020-01-21 19:12] LABS: Acetaminophen 0 ug/mL (10-30); Ammonia < 10 umol/L (11-32); Troponin I < 0.02 ng/mL (0.00-0.056)
[2020-01-21 19:15] LABS: Bacteria Urine Trace /hpf; RBC Urine 0-2 /hpf (0-2); WBC Urine 0-3 /hpf (0-3)
--- NOTE | 2020-01-21 19:15 | PC.NURSE ---
CRITICAL GLUCOSE 43 CALLED FROM LAB AND REPORTED TO ERP. D10 INCREASED TO 200 ML/HR PER ERP VERBAL ORDERS.
--- NOTE | 2020-01-21 19:16 | PC.NURSE ---
1900 FOOD TRAY PROVIDED TO PATIENT 20% CONSUMED. PT STATES HE HAS NO APPETITE.
[2020-01-21 19:24] LABS: Ethanol < 3 mg/dL (0-6); Salicylate 0.8 mg/dL (2.8-20.0)
[2020-01-21 20:20] LABS: Glucose Point of Care 53 (65-105)
[2020-01-21] MEDS: DEXTROSE 10% 250 ML 200 ML IV CONT ×3 (20:33→23:12)
--- NOTE | 2020-01-21 20:35 | PC.NURSE ---
RN REQUESTED INPATIENT ROOM FROM [facility]. ROOM 206 PROVIDED. REGISTRATION NOTIFIED.
[2020-01-21 20:47] VITALS: BP 124/56; PULSE 73; RESP 14; O2SAT 96
[2020-01-21 21:44] LABS: Reflex Lactic Acid Yes or No Add Lactic
[2020-01-21 21:55] LABS: Glucose Point of Care 103 (65-105)
--- NOTE | 2020-01-21 21:55 | PC.NURSE ---
notified that the 2200 blood sugar was 103. acknowledged result. No new orders.
--- NOTE | 2020-01-21 22:10 | ADMGEN ---
This patient, Frederick Palmer, was admitted to 2nd Floor Room 206-1. Patient oriented to hospital policies and general routines including ID bracelet, bed and alarms, visiting hours, pain management, procedures, bathroom and other care routines, personal items, smoking policy, room service/diet, and visiting hours. Information on how to activate the Rapid Response Team has been discussed. Patient are encouraged to report perceived risks to care and to ask questions if they do not understand what they are told or what they should do.
[2020-01-21 22:14] VITALS: BMI 30.9
[2020-01-21 22:15] LABS: Lactic Acid 1.9 mmol/L (0.4-2.0)
[2020-01-21 22:54] VITALS: PULSE 73; RESP 16; O2SAT 98
[2020-01-21] MEDS: ALBUTEROL SULFATE NEB 2.5 MG/3 ML INH INHALATION (22:54)
[2020-01-21 23:01] VITALS: PULSE 68; RESP 16; O2SAT 99
[2020-01-21] MEDS: LOVASTATIN 20 MG TABLET PO (23:11)
[2020-01-22] VITALS (13 sets, daily range): BP systolic 90–114; BP diastolic 49–62; PULSE 70–82; RESP 16–20; TEMP 36.4–37.4; O2SAT 93–99
[2020-01-22 00:11] LABS: Glucose Point of Care 188 (65-105)
--- NOTE | 2020-01-22 00:15 | PC.NURSE ---
Dr. Way notified of pt's blood sugar of 188. No new orders at this time.
[2020-01-22] MEDS: DEXTROSE 10% 250 ML 200 ML IV CONT ×3 (00:36→03:17)
[2020-01-22 01:34] LABS: Troponin I < 0.02 ng/mL (0.00-0.056)
[2020-01-22 01:58] LABS: Glucose Point of Care 225 (65-105)
--- NOTE | 2020-01-22 02:00 | PC.NURSE ---
Dr. Way notified of pt's blood sugar of 225. No new orders at this time.
[2020-01-22 04:00] LABS: Glucose Point of Care 265 (65-105)
--- NOTE | 2020-01-22 04:02 | PC.NURSE ---
Attempted to notify Dr. Way about pt's blood sugar of 265 but he was with a patient. Message left with ZOYA Chin to give to Dr. Way.
--- NOTE | 2020-01-22 04:10 | PC.NURSE ---
ZOYA Chin returned report from Dr. Way with no new orders.
[2020-01-22] MEDS: DEXTROSE 10% 250 ML 100 ML IV CONT ×2 (04:32→07:23)
[2020-01-22] MEDS: ALBUTEROL SULFATE NEB 2.5 MG/3 ML INH INHALATION ×4 (05:38→22:52)
[2020-01-22 05:53] LABS: Basophils Absolute Auto 0.07 K/mm3 (0.00-0.10); Basophils Percent Auto 0.8 % (0.0-1.0); Hematocrit 38.5 % (37.0-46.0); Hemoglobin 12.7 g/dL (12.4-15.3); Immature Granulocyte Absolute 0.03 K/mm3 (0.00-0.00); Immature Granulocyte Percent A 0.4 % (0.0-0.0); Lymphocytes Absolute Auto 2.15 K/mm3 (1.10-4.50); Lymphocytes Percent Auto 25.2 % (18.0-42.0); Mean Corpuscular Hemoglobin 30.3 pg (27.0-31.0); Mean Corpuscular Volume 91.9 fL (78.0-102.0); Mean Platelet Volume 10.8 fl (8.7-11.0); Monocytes Absolute Auto 0.85 K/mm3 (0.10-0.90); Neutrophils Absolute Auto 4.8 K/mm3 (1.7-7.2); Neutrophils Percent Auto 56.6 % (50.0-70.0); Platelet Count Result 211 K/mm3 (150-420); Red Blood Count 4.19 M/mm3 (4.70-6.10); Red Cell Distribution Width 13.6 % (11.6-14.4); White Blood Count 8.5 K/mm3 (4.8-10.8)
[2020-01-22 06:04] LABS: Glucose Point of Care 220 (65-105)
--- NOTE | 2020-01-22 06:04 | PC.NURSE ---
Dr. Way notified of pt's blood sugar of 220. No new orders at this time.
[2020-01-22 06:13] LABS: Alanine Aminotransferase 17 U/L (16-63); Albumin Level 2.8 g/dL (3.4-5.0); Alkaline Phosphatase 69 U/L (46-116); Anion Gap 11 mmol/L (8-16); Aspartate Amino Transferase 24 U/L (15-37); Bilirubin,Total 0.4 mg/dL (0.00-1.00); Blood Urea Nitrogen 13 mg/dL (7-18); Calcium 8.2 mg/dL (8.5-10.1); Carbon Dioxide 24 mmol/L (21-32); Chloride 101 mmol/L (98-108); Estimated CRCL calculation 45 ml/min; Estimated Glomerular Filt Rate 49; Glucose 240 mg/dL (70-99); Osmolality Calculated 290 mOsm/kg (285-295); Potassium 3.1 mmol/L (3.5-5.1); Sodium 136 mmol/L (136-145); Total Protein 6.4 g/dL (6.4-8.2)
[2020-01-22 06:23] LABS: Troponin I < 0.02 ng/mL (0.00-0.056)
[2020-01-22 08:09] LABS: Glucose Point of Care 213 (65-105)
[2020-01-22] MEDS: ASPIRIN 81 MG ENTERIC TABLET PO (09:20)
[2020-01-22] MEDS: carvediloL 12.5 MG TABLET PO ×2 (09:20→17:55)
[2020-01-22] MEDS: LORATADINE 10 MG TABLET PO (09:20)
[2020-01-22 10:12] LABS: Glucose Point of Care 221 (65-105)
--- NOTE | 2020-01-22 11:24 | PM.IMHP ---
H&P: HPI History of Present Illness Date/Time: 01/22/20 11:24 Chief complaint: hypoglycemia weakness Narrative: Frederick Palmer is a 74 year old male that arrived from his pcp office with hypoglycemia. Patient has a past medical history of [place], diabetes, tobacco dependence. Patient was recently admitted to our hospital on 01/13/2020 for altered mental status, hyperglycemia and seizure. At that time case managers asked patient's primary care provider if she would like for patient to be placed she had declined at that time. Later this week she called our case managers to asked for placement for patient care given was referred to pcp. . Patient visited his primary care physician on 01/20 for follow-up appointment. At the time of the appointment patient blood sugar was between 30 and 40. critical care specialist noted that patient was not eating wel and she had a diffucult time working the glucose meter . After several unsuccessful attempts by the primary care provider to increase blood sugar patient was sent to the ED. Patient was given D10% to improve BS. Patient is currently stable and has no complains at this time. I did speak with his caregiver and i has been decided that patient will need to be because she can no longer manage his care. she requested that he be placed out of town with his son. Case coordination is working with family for placement. The patient denies SOB, CP, palpitation, extremity numbness, lightheadedness, dizziness, constipation, diarrhea, chills, or fever. Review of Systems Review of Systems: All systems reviewed & are unremarkable except as noted in HPI and below (10 point system review) [facility] Past Medical History Medical History (Updated 01/22/20 @ 11:58 by GIUSEPPE Franklin) Heart attack Nicotine dependence, cigarettes, in remission Obesity, Class I, BMI 30-34.9 Type 2 diabetes mellitus Surgical History Surgical History History of cholecystectomy History of heart surgery bypass surgery Family History Family History Mother Diabetes mellitus Social History Social History Years smoked: 10 Smoking status: Former smoker Tobacco type: cigarettes Smokeless tobacco user: chewing tobacco Second hand tobacco smoke exposure: Yes Alcohol intake: former Drinks per week: 3 Substance use: never Substance use type: marijuana Additional living arrangements comments: niece Patient reports he was having trouble at home. Additional occupation/education comments: construction-prior Gender identity (if verbalized by the patient): Male Spiritual care concerns: No Meds Home Medications and Allergies Home Medications Medication Instructions Recorded Confirmed Type aspirin 81 mg tablet,delayed 81 mg PO DAILY #90 tablet 09/04/19 01/21/20 Rx release loratadine 10 mg tablet 10 mg PO DAILY #30 tablet 11/21/19 01/21/20 Rx carvedilol 12.5 mg PO BID 12/15/19 01/21/20 History lovastatin 20 mg tablet See Rx Instructions .ROUTE 12/17/19 01/21/20 Rx .COMPLEX #90 tablet blood sugar diagnostic See Rx Instructions .ROUTE 12/22/19 01/21/20 Rx .COMPLEX #100 strip pen needle, diabetic 31 gauge x #90 ea 01/15/20 01/21/20 Rx 5/16 empagliflozin 10 mg tablet 10 mg PO DAILY #30 tablet 01/21/20 01/21/20 Rx insulin lispro 100 unit/mL 12 unit SUB-Q TID #15 ml 01/21/20 01/21/20 Rx subcutaneous pen metformin 750 mg tablet,extended 750 mg PO DAILY #30 tablet 01/21/20 01/21/20 Rx release 24 hr mirtazapine 7.5 mg tablet 7.5 mg PO DAILY #30 tablet 01/21/20 01/21/20 Rx blood sugar diagnostic #100 ea 01/22/20 Rx blood-glucose meter #1 ea 01/22/20 Rx lancets #100 ea 01/22/20 Rx Allergies Allergy/AdvReac Type Severity Reaction Status Date / Time No Known Allergies Allergy Unverified 01/21/20 16:52 Vi
[2020-01-22 12:23] LABS: Glucose Point of Care 222 (65-105)
[2020-01-22] MEDS: POTASSIUM CHLORIDE 20 MEQ TABLET 40 MEQ PO (12:36)
--- NOTE | 2020-01-22 12:55 | PC.NURSE ---
Patient removed IV from arm.
[2020-01-22 16:29] LABS: Glucose Point of Care 230 (65-105)
[2020-01-22] MEDS: MIRTAZAPINE 15 MG TABLET 7.5 MG PO (20:56)
[2020-01-22] MEDS: LOVASTATIN 20 MG TABLET PO (20:56)
[2020-01-22 21:05] LABS: Glucose Point of Care 157 (65-105)
[2020-01-23] VITALS (7 sets, daily range): BP systolic 118–128; BP diastolic 61–65; PULSE 72–82; RESP 16–20; TEMP 36.6–36.8; O2SAT 94–98
--- NOTE | 2020-01-23 01:44 | PC.NURSE ---
Patient is pulling at catheter and attempting to get out of bed, he is stating I'm going to leave, get it off of me . Patient is combative with staff. He is aware that he is in a hospital but he does not know where and he is disoriented to time. Patient was assisted back to bed and reoriented. Bed alarm is on for patient safety. Call light is within reach.
[2020-01-23 05:48] LABS: Hematocrit 40.9 % (37.0-46.0); Hemoglobin 13.4 g/dL (12.4-15.3); Mean Corpuscular HGB Conc 32.8 g/dL (32.0-36.0); Mean Corpuscular Hemoglobin 30.2 pg (27.0-31.0); Mean Corpuscular Volume 92.1 fL (78.0-102.0); Mean Platelet Volume 10.7 fl (8.7-11.0); Platelet Count Result 217 K/mm3 (150-420); Red Blood Count 4.44 M/mm3 (4.70-6.10); Red Cell Distribution Width 13.4 % (11.6-14.4); White Blood Count 8.2 K/mm3 (4.8-10.8)
[2020-01-23] MEDS: ALBUTEROL SULFATE NEB 2.5 MG/3 ML INH INHALATION ×2 (05:58→12:57)
[2020-01-23 06:10] LABS: Alanine Aminotransferase 18 U/L (16-63); Alkaline Phosphatase 71 U/L (46-116); Anion Gap 11 mmol/L (8-16); Aspartate Amino Transferase 34 U/L (15-37); Bilirubin,Total 0.6 mg/dL (0.00-1.00); Blood Urea Nitrogen 13 mg/dL (7-18); Calcium 8.7 mg/dL (8.5-10.1); Carbon Dioxide 25 mmol/L (21-32); Chloride 105 mmol/L (98-108); Estimated CRCL calculation 47 ml/min; Estimated Glomerular Filt Rate 53; Glucose 163 mg/dL (70-99); Osmolality Calculated 296 mOsm/kg (285-295); Potassium 3.6 mmol/L (3.5-5.1); Sodium 141 mmol/L (136-145); Total Protein 7.4 g/dL (6.4-8.2)
[2020-01-23] MEDS: carvediloL 12.5 MG TABLET PO (09:02)
[2020-01-23] MEDS: ASPIRIN 81 MG ENTERIC TABLET PO (09:02)
[2020-01-23] MEDS: LORATADINE 10 MG TABLET PO (09:02)
[2020-01-23] MEDS: POTASSIUM CHLORIDE 20 MEQ TABLET 40 MEQ PO (09:02)
[2020-01-23 11:57] LABS: Glucose Point of Care 212 (65-105)
--- NOTE | 2020-01-23 14:02 | PM.DS ---
DS: Admitting Diagnosis Admitting Diagnosis Admitting Diagnosis: hypoglycemia weakness DS: Discharge Diagnosis Discharge Diagnosis (1) Hypoglycemia due to type 2 diabetes mellitus: Code(s): E11.649 - Type 2 diabetes mellitus with hypoglycemia without coma Status: Acute Assessment and Plan: Blood sugar on admission and had physician's office between 30 and 40. Blood sugar controlled Will continue the p.o. diabetic medication. Patient was discharged to retirement with a sliding scale Patient's primary care physician can adjust if needed (2) Weakness: Code(s): R53.1 - Weakness Status: Acute Assessment and Plan: PT OT evaluation ordered Plans to place patient in a retirement with PT OT (3) Obesity, Class I, BMI 30-34.9: Code(s): E66.9 - Obesity, unspecified Status: Acute Assessment and Plan: Educated on healthy lifestyle (4) Hypokalemia: Code(s): E87.6 - Hypokalemia Status: Acute Assessment and Plan: Resolved Potassium 3.6 Supplement given will repeat in the a.m. (5) BENJAMIN (acute kidney injury): Code(s): N17.9 - Acute kidney failure, unspecified Status: Acute Assessment and Plan: Patient creatinine 1.32 improving Creatinine on ten 01/13/2020 1.33 on 05/10/19 1.14. Will assume the patient's baseline is 1.10 Encourage patient to drink plenty of fluids. Avoid nephrotoxic agent Renal dose all medication DS: Summary Time Spent with Patient Time attestation: Total time spent providing and/or coordinating discharge services:60 Exam Narrative: Exam Narrative: GENERAL: This is a well-nourished, well-developed patient, in no apparent distress. HEAD: normocephalic, atraumatic. EYES: PERRL. Sclera clear/white. Vision is grossly intact. EARS: External ears normal, auditory canals clear and without drainage, TMs normal without perforation. Hearing grossly intact. NOSE: External nose normal with no obvious nasal discharge, nares without redness, no rhinorrhea. THROAT: Mucous membranes moist, posterior pharynx clear. NECK: Neck supple, non-tender without lymphadenopathy, masses or thyromegaly. CARDIOVASCULAR: Regular rate and rhythm without murmurs, gallops, or rubs. RESPIRATORY: Clear to auscultation. Breath sounds equal bilaterally. No wheezes, rales, or rhonchi. GASTROINTESTINAL: Abdomen soft, non-tender, nondistended. Bowel sounds are active. No hepato-splenomegaly, or palpable masses. No guarding. SKIN: warm, intact with no suspicious lesions or rash, good texture and turgor. NEURO: awake, alert, and oriented to person, place and time. There were no obvious focal neurologic abnormalities. Steady gait EXTREMITIES: Normal range of motion. No edema. No calf tenderness. Negative Homans sign bilaterally. BACK: Nontender without deformity or crepitance. No flank tenderness. DS: Data Data Completed and Pending Labs on day of discharge: Labs from last 24 hours 01/23/20 01/23/20 01/23/20 11:55 05:29 05:29 WBC 8.2 RBC 4.44 L Hgb 13.4 Hct 40.9 MCV 92.1 MCH 30.2 MCHC 32.8 RDW 13.4 Plt Count 217 MPV 10.7 Sodium 141 Potassium 3.6 Chloride 105 Carbon Dioxide 25 Anion Gap 11 BUN 13 Creatinine 1.32 H Estim Creat Clear Calc 47 Estimated GFR 53 L Glucose 163 H POC Capillary Glucose 212 Calculated Osmolality 296 H Calcium 8.7 Total Bilirubin 0.6 AST 34 ALT 18 Alkaline Phosphatase 71 Total Protein 7.4 Albumin 3.0 L SARS-CoV-2 RNA (RT-PCR) 01/22/20 01/22/20 01/22/20 21:02 16:27 15:11 WBC RBC Hgb Hct MCV MCH MCHC RDW Plt Count MPV Sodium Potassium Chloride Carbon Dioxide Anion Gap BUN Creatinine Estim Creat Clear Calc Estimated GFR Glucose POC Capillary Glucose 157 230 Calculated Osmolality Calcium Total Bilirubin AST ALT
[2020-01-23 15:20] LABS: SARS-CoV-2 RNA PCR Negative
--- NOTE | 2020-01-23 16:14 | PC.NURSE ---
Report called to Rad[facility]
--- NOTE | 2020-01-26 13:16 | PC.NURSE ---
[facility] contacted, spoke with Devorah, nurse. Devorah states there were no issues with the discharge instructions.
== END 2020-01-23 17:00 | DRG 639 ==
LOC: CHSED 17:53 → CHS2ND 20:40
PROVIDERS: Nurse Practitioner; Admitting Provider Emergency Medicine; Emergency Provider Emergency Medicine; PCP Nurse Practitioner Family; Visit Provider Emergency Medicine
DX: E11.649 Type 2 diabetes mellitus with hypoglycemia without coma (principal); I25.10 Atherosclerotic heart disease of native coronary artery without angina pectoris; I44.0 Atrioventricular block, first degree; R41.0 Disorientation, unspecified; E66.9 Obesity, unspecified; F17.201 Nicotine dependence, unspecified, in remission; N17.9 Acute kidney failure, unspecified; E87.6 Hypokalemia; F17.211 Nicotine dependence, cigarettes, in remission; Z20.828 Contact with and (suspected) exposure to other viral communicable diseases; Z79.4 Long term (current) use of insulin
CPT/HCPCS: 36415; 36600; 71046; 71260; 74177; 80053; 80307; 81001; 82140; 82550; 82805; 82948; 83605; 84443; 84484; 85025; 85027; 87040; 87635; 93005; 94640; 97110; 97161; 97165; 97530; 99285; A9270; C9803; J1815; Q9965; U0003